=== PATIENT | female | born 1950 | race Caucasian/White ===

== ENCOUNTER 2021-03-23 14:02 | Outpatient (REF) | payer MEDICARE, SELFPAY | END 2021-03-23 14:03 | disposition home or self-care (01) | LOC: HO.LNP 14:02 | PROVIDERS: Visit Provider Hospitalist | DX: R30.0 Dysuria (principal) | CPT/HCPCS: 87086; 87088; 87186 ==

== ENCOUNTER 2022-02-04 11:00 | Outpatient (RCR) | payer MEDICARE, OTHER, SELFPAY ==
--- NOTE | 2021-12-10 12:47 | MHC.PT.EP ---
[facility] [place] [facility] [place] [facility] [place] Office [address] Aly Mckenzie [address] [phone] F: [phone] F: [phone] F: [phone] F: [phone] Physical Therapy Plan of Care Date of Evaluation: Date of Surgery: n/a Diagnosis: R hip pain Assessment: Patient is a 71 year old female presenting to PT with complaints of pain in her R hip. Pt reports onset of pain began about 6 months ago due to insidious onset. She presents today with impairments in ROM, hip strength, posture, TTP to hip musculature . Pt's current occupation is retired, with baseline physical activities including ADLs, sitting, stair negotiation, ambulation, and transfers. Pt expresses fdc goal of reducing stiffness, and is motivated to work towards this in PT. Clinical presentation today is most consistent with signs and sx associated with possible hip bursitis with possible myofascial contribution and pt will benefit from skilled PT to address the following problems and impairments noted upon evaluation: ROM, hip strength, posture, TTP to hip musculature. These problems limit the patient with the following functional activities: ADLs, sitting, stair negotiation, ambulation, and transfers. The prescribed treatment plan of care is medically necessary. Co-morbidities of osteopenia, HTN, fibromyalgia were identified and taken into considerations of plan of care. Pt was educated on HEP, role of PT, prognosis, POC. Frequency and Duration: The patient will be seen 2 x week x 5 weeks Short Term Goals: Pt will demonstrate improved hip MMT by 1/3 grade in 3 weeks for improved lumbopelvic stability. Pt will demonstrate negative trendelenburg in 3 weeks for improved stability with gait. Pt will demonstrate hip flexion ROM without reports of stiffness on R in 3 weeks. Jail Goals: Pt will demonstrate LEFI score improved by 9 points in 5 weeks for improved functional mobility. Pt will demonstrate ability to negotiate stairs step over step without difficulty in 5 weeks. Pt will demonstrate ability to ambulate with normal mechanics in 5 weeks for return to PLOF. Treatment Plan: Modalities to reduce pain, spasms and effusion. Manual therapy to restore motion and function. Therapeutic exercise to improve strength and flexibility. Neuromuscular re-education for posture and balance. Therapeutic activities to return to functional activities of daily living. Electronically signed by: Ade Ennis, PT, DPT, ATC Please sign and return to therapist. Thank you for your referral.
--- NOTE | 2022-02-04 12:59 | MHC.PT.DC ---
[facility] [place] Office [place] Office [place] Office [address] Aly Mckenzie [address] [phone] F: [phone] F: [phone] F: [phone] F: [phone] Physical Therapy Discharge Report Diagnosis: R hip pain Date of Surgery: n/a Date of Evaluation: 12/10/21 Date of Discharge: 02/04/22 Treatments to Date: 15 Cancellations to Date: 1 No Shows to Date: 1 Discharge Status: Achieved Goals Improved Function Independent with HEP Discharge Summary: Pt has made great progress since beginning PT. She is no longer feeling stiffness except at night. She has met all goals and is no longer demonstrating difficulty with navigating stairs or completing her daily activities. She is independent and compliant with her HEP. 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 At this time max benefits of PT have been provided and skilled PT is no longer indicated. She is in agreement with d/c today. Electronically signed by: Ade Ennis, PT, DPT, ATC Please sign and return to therapist. Thank you for your referral.
== END 2022-02-04 12:59 | disposition home or self-care (01) ==
LOC: HO.PTCHIC 11:00
PROVIDERS: Visit Provider Nurse Practitioner Family
DX: M25.551 Pain in right hip (principal)
CPT/HCPCS: 97110; 97140; 97161

== ENCOUNTER 2023-09-25 14:12 | Outpatient (AMB) | payer BC, SELFPAY ==
--- NOTE | 2023-09-25 14:23 | MHC.PC.OV ---
Vital Signs 09/25/23 14:26 Height 5 ft 5 in Weight 197 lb BMI 32.8 BP 120/78 Blood Pressure Location Lt brachial Position Sitting Pulse 80 Pulse Source Pulse Oximeter Pulse Oximetry (%) 98 Oxygen Delivery Method Room Air Intake Visit Reasons: 6 month follow up Intake Note: Patient here for osteopenia follow up. Allergies sulfamethoxazole [From Bactrim] Allergy (Intermediate, Verified 09/25/23 14:27) Rash trimethoprim [From Bactrim] Allergy (Intermediate, Verified 09/25/23 14:27) Rash azithromycin Allergy (Unknown, Verified 09/25/23 14:27) unknown reaction Tobacco use date assessed: 01/27/23 Fall risk assessment: No Falls in past year Last assessed Fall Risk: 09/25/23 Dental Screening Dental Screen Date: 09/25/23 Did you have a dental visit in the last 12 months?: No Did you have a dental problem in the last 6 months where you did not have access to dental care?: No Was dental information given to patient?: No HPI 6 month follow up HPI Details HTN: Blood pressure is stable, managed with lisinopril-hydrochlorothiazide 10-12.5mg. Denies chest pain, shortness of breath, headache, dizziness, and blurred vision. [facility] Medical History Hematuria, microscopic Insomnia H. pylori infection Schatzki's ring Osteopenia HTN (hypertension) Fibromyalgia Renal stones Asthma Surgical History History of partial hysterectomy Status post breast reduction History of laparoscopic cholecystectomy Family History Father CVD (cardiovascular disease) Myocardial infarction Mother Breast cancer Bladder cancer Son No problems noted. Social History Housing: House Alcohol intake: never Patient Tobacco Use Status: Never used Tobacco e-Cigarette/Vaping Use: Never Used Second Hand Smoke Exposure: No Current occupational status: retired Current occupational exposures/hazards: No Cognitive needs: No Hearing needs: No Vision needs: No Questionnaire Thrive Questionnaire Date Thrive assessed: 01/27/23 KATE-7 AMB Questionnaire KATE-7 Date KATE - 7 assessed: 01/27/23 Source: Developed by Drs. Angelito Katz, Cristine Coto, John Mora and colleagues, with an educational liss from [employer]. Review of Systems Const Reports as per HPI Physical exam (Primary Care) Vital Signs: Last Vital Signs Pulse 80 09/25/23 14:26 BP 120/78 09/25/23 14:26 Pulse Ox 98 09/25/23 14:26 Oxygen Delivery Method Room Air 09/25/23 14:26 BMI result Body Mass Index 32.8 Tobacco/Smoking Status: Tobacco use Status Tobacco use date assessed 01/27/23 09/25/23 14:24 Patient Tobacco Use Status Never used Tobacco 09/25/23 14:24 e-Cigarette/Vaping Use Never Used 09/25/23 14:24 Thrive Assessment: Date of Thrive Assessment Date Thrive assessed 01/27/23 09/25/23 14:24 Const General: cooperative Nutritional Appearance: obese Orientation/consciousness: patient oriented x3 Resp Effort & Inspection: normal respiratory effort Auscultation: clear to auscultation bilaterally Cardio Rate: regular rate Rhythm: regular rhythm Heart sounds: S1 normal heart sound present and S2 normal heart sound present Neuro General: patient oriented x3 Extrem Right lower extremity: no edema Left lower extremity: no edema Psych Appearance: grossly normal Mental Status: mental status grossly normal Speech and movement: Normal speech and movement present Affect: normal affect Attitude: cooperative Thought process: Normal thought process present Thought content: Normal thought content present Insight: Good insight present (Psych) Judgement: Good judgement present (Psych) Assessment and Plan Assessment & Plan (1) HTN (hypertension): Code(s): I10 - Essential (primary) hypertension Coding Level of Care Code Est Pt Level 3 (01608) Diagnoses HTN (hypertension) I10
[2023-09-25 14:26] VITALS: BP 120/78; PULSE 80; O2SAT 98; BMI 32.8
== END 2023-09-25 15:36 | disposition home or self-care (01) ==
PROVIDERS: PCP Nurse Practitioner Family; Visit Provider Nurse Practitioner Family
DX: I10 Essential (primary) hypertension (principal)
CPT/HCPCS: 99213

== ENCOUNTER 2024-02-02 10:09 | Outpatient (AMB) | payer BC, SELFPAY ==
--- NOTE | 2024-02-02 10:24 | MHC.PC.OV ---
Vital Signs 02/02/24 10:26 Height 5 ft 5 in Weight 204 lb BMI 33.9 BP 120/76 Blood Pressure Location Lt brachial Position Sitting Pulse 66 Pulse Source Pulse Oximeter Pulse Oximetry (%) 98 Oxygen Delivery Method Room Air Intake Visit Reasons: Annual PE Intake Note: Patient here for physical exam. Mammo: 2022 due end of this year BD: 2022 Allergies sulfamethoxazole [From Bactrim] Allergy (Intermediate, Verified 02/02/24 10:27) Rash trimethoprim [From Bactrim] Allergy (Intermediate, Verified 02/02/24 10:27) Rash azithromycin Allergy (Unknown, Verified 02/02/24 10:27) unknown reaction Medication List - Last Reconciled 02/02/24 by AMINA Francisco ascorbate calcium (vitamin C) 500 mg PO DAILY aspirin 81 mg PO DAILY cephalexin 500 mg PO Q6H 7 days cholecalciferol (vitamin D3) 50 mcg PO DAILY ezetimibe 10 mg PO DAILY lisinopril-hydrochlorothiazide 10-12.5 mg 1 tab PO DAILY multivitamin (Multiple Vitamins tablet) 1 tab PO DAILY omeprazole 20 mg PO DAILY tramadol 50 mg PO BID PRN 10 days Tobacco use date assessed: 02/02/24 Fall risk assessment: No Falls in past year Last assessed Fall Risk: 02/02/24 Dental Screening Dental Screen Date: 02/02/24 Did you have a dental visit in the last 12 months?: Yes Did you have a dental problem in the last 6 months where you did not have access to dental care?: No Was dental information given to patient?: Patient has dentist HPI Annual PE HPI Details Pt is here for a PE. Will order labs. Refuses colonoscopy and cologuard. Mammo is up to date. Bone density is up to date. [facility] Medical History Hematuria, microscopic Insomnia H. pylori infection Schatzki's ring Osteopenia HTN (hypertension) Fibromyalgia Renal stones Asthma Surgical History History of partial hysterectomy Status post breast reduction History of laparoscopic cholecystectomy Family History Father CVD (cardiovascular disease) Myocardial infarction Mother Breast cancer Bladder cancer Son No problems noted. Social History Housing: House Alcohol intake: never Patient Tobacco Use Status: Never used Tobacco e-Cigarette/Vaping Use: Never Used Second Hand Smoke Exposure: No Current occupational status: retired Current occupational exposures/hazards: No Cognitive needs: No Hearing needs: No Vision needs: No Questionnaire PHQ-9 Over the last 2 weeks, how often have you been bothered by any of the following problems? 79798 - PHQ-9 Billing: Patient declined-do not bill Source: Developed by Drs. Angelito Katz, Cristine Coto, John Mora and colleagues, with an educational liss from [employer]. Thrive Questionnaire Date Thrive assessed: 02/02/24 What is your living situation today?: I choose not to answer this question Within the past 12 months, did the food you bought not last and you didn't have the money to get more?: I choose not to answer this question Within the past 12 months, did you worry whether your food would run out before you got money to buy more?: I choose not to answer this question Do you have trouble paying for medicines?: I choose not to answer this question Do you have trouble getting transportation to medical appointments?: I choose not to answer this question Do you have trouble paying your heating and electricity bill?: I choose not to answer this question Do you have trouble taking care of your child, family member or friend?: I choose not to answer this question Do you have trouble with day-to-day activities such as bathing, preparing meals, shopping, managing finances, etc.?: I choose not to answer this question Are you currently unemployed and looking for a job?: I choose not to answer this question Are you interested in more education?: I choose not to answer this question Currently or been in a relationship where the following occur: I choose not to answer this question THRIVE Score: 0 AUDIT C Alcohol Use Questionnaire (AUDIT-C) 1. How often do you have a drink containing alcohol?: Never 3. How often do you have six or more drinks on one occasion?: Never Total Score: 0 Score Reviewed/Action Taken: No KATE-7 AMB Questionnaire KATE-7 Date KATE - 7 assessed: 02/02/24 Source: Developed by Drs. Angelito Katz, Cristine Coto, John Mora and colleagues, with an educational liss from [employer]. KATE-7 Assessment Billing KATE-7 Assessment Tool: pt declined-do not bill Review of Systems Const Denies chills and Denies fever(s) Eyes Denies blurry vision ENT Denies vertigo, Denies dizziness and Denies sore throat Card Denies chest pain at rest, Denies chest pain with activity, Denies diaphoresis, Denies dyspnea and Denies dyspnea on exertion Resp Denies cough, Denies dyspnea, Denies dyspnea on exertion and Denies wheezing GI Denies abdominal pain, Denies melena, Denies hematochezia, Denies constipation, Denies diarrhea and Denies loose stools Denies hematuria Musc Denies numbness and Denies tingling Skin/Breast Denies lesions Neuro Denies vertigo, Denies dizziness, Denies numbness and Denies tingling Psych Denies anxiety, Denies depression, Denies homicidal ideation, Denies suicidal ideation and Denies other (substance abuse) Aller/Immun Denies wheezing Physical exam (Primary Care) Vital Signs: Last Vital Signs Pulse 66 02/02/24 10:26 BP 120/76 02/02/24 10:26 Pulse Ox 98 02/02/24 10:26 Oxygen Delivery Method Room Air 02/02/24 10:26 BMI result Body Mass Index 33.9 Tobacco/Smoking Status: Tobacco use Status Tobacco use date assessed 02/02/24 02/02/24 10:29 Patient Tobacco Use Status Never used Tobacco 02/02/24 10:26 e-Cigarette/Vaping Use Never Used 02/02/24 10:26 Thrive Assessment: Date of Thrive Assessment Date Thrive assessed 02/02/24 02/02/24 10:37 Currently or been in a relationship where the following occur: I choose not to answer this question Const General: cooperative Nutritional Appearance: obese Orientation/consciousness: patient oriented x3 HENMT Head: Yes normal to inspection, Yes normocephalic and Yes atraumatic Ears: TM's normal bilaterally Eyes General: appearance normal, both eyes and all related structures Alignment and Position: alignment normal and position normal Neck Neck: Yes normal visual inspection and Yes no lymphadenopathy Thyroid: Thyroid normal Resp Effort & Inspection: normal respiratory effort Auscultation: clear to auscultation bilaterally Cardio Rate: regular rate Rhythm: regular rhythm Heart sounds: S1 normal heart sound present, S2 normal heart sound present and no murmurs GI Palpation (GI): Soft to palpation and nontender Auscultation: normal bowel sounds Skin Rashes: no rashes Neuro General: patient oriented x3, moves all extremities, no focal motor deficits and deep tendon reflexes 2+ bilaterally Romberg Test: Negative Extrem Right lower extremity: no edema Left lower extremity: no edema Psych Appearance: grossly normal Mental Status: mental status grossly normal Speech and movement: Normal speech and movement present Affect: normal affect Attitude: cooperative Thought process: Normal thought process present Thought content: Normal thought content present Insight: Good insight present (Psych) Judgement: Good judgement present (Psych) Assessment and Plan Assessment & Plan (1) Physical exam: Code(s): Z. - Encounter for general adult medical examination without abnormal findings Plan: Labs ordered Orders: Orders UA CC w/rflx Micro + Cult Today Z. - Encounter for general adult medical examination without abnormal findings Vitamin D 25-OH Total Today Z00. - Encounter for general adult medical examination without abnormal findings Complete Blood Count Auto Diff Today Z00. - Encounter for general adult medical examination without abnormal findings Comprehensive [place]. Panel Fast Today Z00. - Encounter for general adult medical examination without abnormal findings TSH reflex Free T4 Today Z00.00 - Encounter for general adult medical examination without abnormal findings Lipid Panel Today Z00.00 - Encounter for general adult medical examination without abnormal findings Coding Level of Care Code Est Pt Prev Care >65y(44391) Diagnoses Physical exam Z.
[2024-02-02 10:26] VITALS: BP 120/76; PULSE 66; O2SAT 98; BMI 33.9
== END 2024-02-02 11:13 | disposition home or self-care (01) ==
PROVIDERS: Visit Provider Nurse Practitioner Family
DX: Z00.00 Encounter for general adult medical examination without abnormal findings (principal)
CPT/HCPCS: 99397

== ENCOUNTER 2024-02-14 09:05 | Outpatient (AMB) | payer BC, SELFPAY ==
[2024-02-14 09:07] VITALS: BP 110/80; PULSE 68; TEMP 36.6; O2SAT 96; BMI 34.1
--- NOTE | 2024-02-14 09:07 | AM.OFFWIN_ITS ---
Intake Vital Signs 02/14/24 09:07 Height 5 ft 5 in Weight 205 lb BMI 34.1 BP 110/80 Blood Pressure Location Lt brachial Position Sitting Pulse 68 Pulse Source Pulse Oximeter Temp 97.8 F Temp Source Oral Pulse Oximetry (%) 96 Oxygen Delivery Method Room Air Intake Visit Reasons: EST/cough and sinus pressure (lobby masked) Intake Note: Pt is here today c/o cough and sinus pressure x3days Patient Tobacco Use Status: Never used Tobacco Allergies sulfamethoxazole [From Bactrim] Allergy (Intermediate, Verified 02/14/24 09:12) Rash trimethoprim [From Bactrim] Allergy (Intermediate, Verified 02/14/24 09:12) Rash azithromycin Allergy (Unknown, Verified 02/14/24 09:12) unknown reaction Medication List - Last Reconciled 02/14/24 by JIMENA Gregg- ascorbate calcium (vitamin C) 500 mg PO DAILY aspirin 81 mg PO DAILY cholecalciferol (vitamin D3) 50 mcg PO DAILY ezetimibe 10 mg PO DAILY lisinopril-hydrochlorothiazide 10-12.5 mg 1 tab PO DAILY multivitamin (Multiple Vitamins tablet) 1 tab PO DAILY omeprazole 20 mg PO DAILY HPI HPI Comments History of Present Illness Details Here today with complaints of a cough and postnasal drip that started on Friday. 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 She does have a history of asthma. Her cough is worse at night. She does have seasonal allergies in his using Claritin and Flonase. However this is not helping her cough. Other than the cough in the postnasal drip she denies c onstitutional symptoms. [facility] Medical History Hematuria, microscopic Insomnia H. pylori infection Schatzki's ring Osteopenia HTN (hypertension) Fibromyalgia Renal stones Asthma Surgical History History of partial hysterectomy Status post breast reduction History of laparoscopic cholecystectomy Family History Father CVD (cardiovascular disease) Myocardial infarction Mother Breast cancer Bladder cancer Son No problems noted. Social History Housing: House Alcohol intake: never Patient Tobacco Use Status: Never used Tobacco e-Cigarette/Vaping Use: Never Used Second Hand Smoke Exposure: No Current occupational status: retired Current occupational exposures/hazards: No Cognitive needs: No Hearing needs: No Vision needs: No Review of Systems Const All systems reviewed & are unremarkable except as noted in HPI and below Physical Exam Vital Signs: Last Vital Signs Temp 97.8 F 02/14/24 09:07 Pulse 68 02/14/24 09:07 BP 110/80 02/14/24 09:07 Pulse Ox 96 02/14/24 09:07 Oxygen Delivery Method Room Air 02/14/24 09:07 BMI result Body Mass Index 34.1 Const Other: Awake alert NAD Sclera and conjunctiva clear bilat TM intact and clear bilat, mild erythema Nares clear, turbinates pale, no sinus tenderness with palpation MMM, pharynx mild postnasal drip RRR LS CTAB Assessment & Plan Assessment & Plan (1) Allergic cough: Code(s): R05.8 - Other specified cough Plan: . Plan States that she responds well to the cough syrup with codeine on her primary care usually gives her along with the Jillian. These 2 prescriptions have been called in. I have encouraged her to continue to use her Claritin and Flonase. Educated her on reasons to return to the clinic. Medications: New albuterol sulfate 90 mcg/actuation 2 puffs inhalation Q4-6H 30 days PRN 8.5 grams 0RF shortness of breath or wheezing codeine-guaifenesin 10-100 mg/5 mL 10 mL PO Q6H 2 days PRN 80 mL 0RF cough Coding Level of Care Code Est Pt Level 3 (31359) Diagnoses Allergic cough R05.8
== END 2024-02-14 09:52 | disposition home or self-care (01) ==
PROVIDERS: PCP Nurse Practitioner Family; Visit Provider Nurse Practitioner Family
DX: R05.8 Other specified cough (principal)
CPT/HCPCS: 99213

== ENCOUNTER 2024-03-10 11:19 | Outpatient (AMB) | payer BC, SELFPAY ==
--- NOTE | 2024-03-10 11:23 | A.OFFPC_ITS ---
Vital Signs 03/10/24 11:27 Height 5 ft 5 in Weight 198 lb 6 oz BMI 33.0 BP 110/76 Blood Pressure Location Lt brachial Position Sitting Pulse 72 Pulse Source Pulse Oximeter Pulse Oximetry (%) 98 Oxygen Delivery Method Room Air Intake Visit Reasons: Follow up er dx pneumonia Intake Note: Patient here to f/u pneumonia Allergies sulfamethoxazole [From Bactrim] Allergy (Intermediate, Verified 03/10/24 11:30) Rash trimethoprim [From Bactrim] Allergy (Intermediate, Verified 03/10/24 11:30) Rash azithromycin Allergy (Unknown, Verified 03/10/24 11:30) unknown reaction Tobacco use date assessed: 02/02/24 Fall risk assessment: No Falls in past year Last assessed Fall Risk: 03/10/24 Dental Screening Dental Screen Date: 02/02/24 HPI Follow up er dx pneumonia HPI Details Pt was seen in the ER on 02/18 c/o cough. She had a chest XR which showed right middle lobe pneumonia. Pt was given doxycycline. Will repeat chest XR. Pt does report fatigue. Denies fever, chills, chest pain, and shortness of breath. Pt reports increased allergy symptoms. Recommended pt stop claritin and start cetirizine. [facility] Medical History Hematuria, microscopic Insomnia H. pylori infection Schatzki's ring Osteopenia HTN (hypertension) Fibromyalgia Renal stones Asthma Surgical History History of partial hysterectomy Status post breast reduction History of laparoscopic cholecystectomy Family History Father CVD (cardiovascular disease) Myocardial infarction Mother Breast cancer Bladder cancer Son No problems noted. Social History Housing: House Alcohol intake: never Patient Tobacco Use Status: Never used Tobacco e-Cigarette/Vaping Use: Never Used Second Hand Smoke Exposure: No Current occupational status: retired Current occupational exposures/hazards: No Cognitive needs: No Hearing needs: No Vision needs: No Questionnaire Thrive Questionnaire Date Thrive assessed: 02/02/24 KATE-7 AMB Questionnaire KATE-7 Date KATE - 7 assessed: 02/02/24 Source: Developed by Drs. Angelito Katz, Cristine Coto, John Mora and colleagues, with an educational liss from [employer]. Review of Systems Const Reports as per HPI Physical exam (Primary Care) Vital Signs: Last Vital Signs Pulse 72 03/10/24 11:27 BP 110/76 03/10/24 11:27 Pulse Ox 98 03/10/24 11:27 Oxygen Delivery Method Room Air 03/10/24 11:27 BMI result Body Mass Index 33.0 Tobacco/Smoking Status: Tobacco use Status Tobacco use date assessed 02/02/24 03/10/24 11:25 Patient Tobacco Use Status Never used Tobacco 03/10/24 11:25 e-Cigarette/Vaping Use Never Used 03/10/24 11:25 Thrive Assessment: Date of Thrive Assessment Date Thrive assessed 02/02/24 03/10/24 11:25 Const General: cooperative Orientation/consciousness: patient oriented x3 Resp Effort & Inspection: normal respiratory effort Auscultation: clear to auscultation bilaterally Cardio Rate: regular rate Rhythm: regular rhythm Heart sounds: S1 normal heart sound present and S2 normal heart sound present Neuro General: patient oriented x3 Psych Appearance: grossly normal Mental Status: mental status grossly normal Speech and movement: Normal speech and movement present Affect: normal affect Attitude: cooperative Thought process: Normal thought process present Thought content: Normal thought content present Insight: Good insight present (Psych) Judgement: Good judgement present (Psych) Assessment and Plan Assessment & Plan (1) Pneumonia: Code(s): J18.9 - Pneumonia, unspecified organism Plan: encouraged deep breathing exercises, fluids, switching claritin to cetirizine, follow up XR early next week. Pt knows to go to the ER with any worsening symptoms. Orders: Orders XR chest 2V Today J18.9 - Pneumonia, unspecified organism Coding Level of Care Code Est Pt Level 3 (51436) Diagnoses Pneumonia J18.9
[2024-03-10 11:27] VITALS: BP 110/76; PULSE 72; O2SAT 98; BMI 33.0
== END 2024-03-10 11:59 | disposition home or self-care (01) ==
PROVIDERS: PCP Nurse Practitioner Family; Visit Provider Nurse Practitioner Family
DX: J18.9 Pneumonia, unspecified organism (principal)
CPT/HCPCS: 99213

== ENCOUNTER 2024-04-06 08:04 | Outpatient (AMB) | payer BC, SELFPAY ==
[2024-04-06 08:05] VITALS: BP 112/72; PULSE 72; TEMP 36.9; O2SAT 98; BMI 32.9
--- NOTE | 2024-04-06 08:05 | AM.OFFWIN_ITS ---
Intake Vital Signs 04/06/24 08:05 Height 5 ft 5 in Weight 198 lb BMI 32.9 BP 112/72 Blood Pressure Location Lt brachial Position Sitting Pulse 72 Pulse Source Pulse Oximeter Temp 98.5 F Temp Source Oral Pulse Oximetry (%) 98 Oxygen Delivery Method Room Air Intake Visit Reasons: EP Cough, headache Intake Note: pt is here for cough and headache Patient Tobacco Use Status: Never used Tobacco Allergies sulfamethoxazole [From Bactrim] Allergy (Intermediate, Verified 04/06/24 08:05) Rash trimethoprim [From Bactrim] Allergy (Intermediate, Verified 04/06/24 08:05) Rash azithromycin Allergy (Unknown, Verified 04/06/24 08:05) unknown reaction Do you need a note to return to daycare/school/sports/work: No HPI HPI Comments History of Present Illness Details Patient is a 73-year-old female complaining of 3 days of postnasal drip, fatigue and general unwell feeling. She states her tested positive for COVID 4 days ago, she states he is taking Paxlovid and is feeling better. Patient denies any shortness of breath, chest congestion, fevers, head congestion, sinus pain or ear pain. [facility] Medical History Hematuria, microscopic Insomnia H. pylori infection Schatzki's ring Osteopenia HTN (hypertension) Fibromyalgia Renal stones Asthma Surgical History History of partial hysterectomy Status post breast reduction History of laparoscopic cholecystectomy Family History Father CVD (cardiovascular disease) Myocardial infarction Mother Breast cancer Bladder cancer Son No problems noted. Social History Housing: House Alcohol intake: never Patient Tobacco Use Status: Never used Tobacco e-Cigarette/Vaping Use: Never Used Second Hand Smoke Exposure: No Current occupational status: retired Current occupational exposures/hazards: No Cognitive needs: No Hearing needs: No Vision needs: No Review of Systems Const All systems reviewed & are unremarkable except as noted in HPI and below Physical Exam Vital Signs: Last Vital Signs Temp 98.5 F 04/06/24 08:05 Pulse 72 04/06/24 08:05 BP 112/72 04/06/24 08:05 Pulse Ox 98 04/06/24 08:05 Oxygen Delivery Method Room Air 04/06/24 08:05 BMI result Body Mass Index 32.9 Const General: cooperative, healthy appearing, comfortable and no acute distress Orientation/consciousness: patient oriented x3 Limitations: no limitations HEENT Head: Yes normal to inspection Ears: external ears normal General nose exam: Normal external nose present, Normal nares present and No nasal discharge present Face and sinus: Yes normal facial exam and Yes sinuses nontender Mouth: Normal oral and palatal mucosa present and moist mucous membranes Throat: Yes posterior oropharynx abnormal (Erythema) Eyes General: appearance normal, both eyes and all related structures Neck Neck: Yes normal visual inspection Resp Effort & Inspection: normal respiratory effort, able to speak in complete sentences, no respiratory distress, not tachypneic, no tripod positioning and no use of accessory muscles Auscultation: clear to auscultation bilaterally Cardio Rate: regular rate Rhythm: regular rhythm Heart sounds: normal S1 and S2 Skin General skin exam: no rashes or lesions noted Neuro General: patient oriented x3 Extrem General: Yes normal to inspection and Yes no clubbing, cyanosis or edema Assessment & Plan Assessment & Plan (1) URI (upper respiratory infection): Code(s): J06.9 - Acute upper respiratory infection, unspecified Qualifiers: URI type: unspecified viral URI Qualified Code(s): J06.9 - Acute upper respiratory infection, unspecified Plan: Tested for COVID, however patient can not be treated with Paxlovid because she can not swallow the large pills and they can not be crushed. Tested so patient would know whether to self isolate or not Plan see above Orders: Orders SARS-CoV2/FLU/RSV Today J06.9 - Acute upper respiratory infection, unspecified Coding Level of Care Code Est Pt Level 3 (87829) Diagnoses Viral upper respiratory tract infection J06.9 URI type: unspecified viral URI
== END 2024-04-06 10:49 | disposition home or self-care (01) ==
PROVIDERS: PCP Nurse Practitioner Family; Visit Provider Physician Assistant
DX: J06.9 Acute upper respiratory infection, unspecified (principal)
CPT/HCPCS: 99213

== ENCOUNTER 2024-04-06 08:29 | Outpatient (REF) | payer BC, SELFPAY ==
[2024-04-06 13:39] LABS: Influenza A PCR NEGATIVE (Negative); Influenza B PCR NEGATIVE (Negative); Resp Syncy Virus RNA Qual PCR NEGATIVE (Negative); SARS COV2 PCR INHOUSE POSITIVE (Negative)
== END 2024-04-06 08:30 | disposition home or self-care (01) ==
LOC: HO.LAB 08:29
PROVIDERS: Visit Provider Physician Assistant
DX: J06.9 Acute upper respiratory infection, unspecified (principal)
CPT/HCPCS: 0241U

== ENCOUNTER 2024-07-12 09:40 | Outpatient (AMB) | payer BC, SELFPAY ==
--- NOTE | 2024-07-12 09:43 | A.OFFPC_ITS ---
Vital Signs 07/12/24 09:44 Height 5 ft 5 in Weight 197 lb 8 oz BMI 32.9 BP 118/72 Blood Pressure Location Lt brachial Position Sitting Pulse 75 Pulse Source Pulse Oximeter Pulse Oximetry (%) 97 Intake Visit Reasons: 6M F/U Allergies sulfamethoxazole [From Bactrim] Allergy (Intermediate, Verified 07/12/24 09:57) Rash trimethoprim [From Bactrim] Allergy (Intermediate, Verified 07/12/24 09:57) Rash azithromycin Allergy (Unknown, Verified 07/12/24 09:57) unknown reaction Medication List - Last Reconciled 07/12/24 by AMINA Francisco albuterol sulfate 90 mcg/actuation 2 puffs inhalation Q4-6H PRN 30 days ascorbate calcium (vitamin C) 500 mg PO DAILY aspirin 81 mg PO DAILY cholecalciferol (vitamin D3) 50 mcg PO DAILY ezetimibe 10 mg PO DAILY lisinopril-hydrochlorothiazide 10-12.5 mg 1 tab PO DAILY multivitamin (Multiple Vitamins tablet) 1 tab PO DAILY omeprazole 20 mg PO DAILY Tobacco use date assessed: 02/02/24 Dental Screening Dental Screen Date: 02/02/24 HPI 5M F/U HPI Details Dyslipidemia: Pt's lipids were elevated. She is taking ezetimibe 10mg. Will repeat labs. Pt's fasting blood sugar was also elevated. Will repeat. Pt is working on her diet. Denies chest pain, shortness of breath, and dizziness. [facility] Medical History Hematuria, microscopic Insomnia H. pylori infection Schatzki's ring Osteopenia HTN (hypertension) Fibromyalgia Renal stones Asthma Surgical History History of partial hysterectomy Status post breast reduction History of laparoscopic cholecystectomy Family History Father CVD (cardiovascular disease) Myocardial infarction Mother Breast cancer Bladder cancer Son No problems noted. Social History Housing: House Alcohol intake: never Patient Tobacco Use Status: Never used Tobacco e-Cigarette/Vaping Use: Never Used Second Hand Smoke Exposure: No Current occupational status: retired Current occupational exposures/hazards: No Cognitive needs: No Hearing needs: No Vision needs: No Questionnaire PHQ-9 Over the last 2 weeks, how often have you been bothered by any of the following problems? 1. Little interest or pleasure in doing things: not at all 2. Feeling down, depressed, or hopeless: not at all 3. Trouble falling or staying asleep, or sleeping too much: not at all 4. Feeling tired or having little energy: not at all 5. Poor appetite or overeating: not at all 6. Feeling bad about yourself - or that you are a failure or have let yourself or your family down: not at all 7. Trouble concentrating on things, such as reading the newspaper or watching television: not at all 8. Moving or speaking so slowly that other people could have noticed. Or the opposite - being so fidgety or restless that you have been moving around a lot more than usual: not at all 9. Thoughts that you would be better off or of hurting yourself in some way: not at all Total score: 0 Depression Screening Interpretation: Negative Depression Screening Done: Yes 00628 - PHQ-9 Billing: Yes Source: Developed by Drs. Angelito Katz, Cristine Coto, John Mora and colleagues, with an educational liss from [employer]. Thrive Questionnaire Date Thrive assessed: 07/05/24 I am a: Patient What is your living situation today?: I have a steady place to live Within the past 12 months, did the food you bought not last and you didn't have the money to get more?: Never true Within the past 12 months, did you worry whether your food would run out before you got money to buy more?: Never true Do you have trouble paying for medicines?: No Do you have trouble getting transportation to medical appointments?: No Do you have trouble paying your heating and electricity bill?: No Do you have trouble taking care of your child, family member or friend?: No Do you have trouble with day-to-day activities such as bathing, preparing meals, shopping, managing finances, etc.?: No Are you interested in more education?: No Please select the resources that you would like help with: None Currently or been in a relationship where the following occur: No concerns reported THRIVE Score: 0 AUDIT C Alcohol Use Questionnaire (AUDIT-C) 1. How often do you have a drink containing alcohol?: Never Total Score: 0 KATE-7 AMB Questionnaire KATE-7 Date KATE - 7 assessed: 02/02/24 Feeling nervous, anxious, or on edge: 0 = Not at all Not being able to stop or control worryin = Not at all Worrying too much about different things: 0 = Not at all Trouble relaxin = Not at all Being so restless that it is hard to sit still: 0 = Not at all Becoming easily annoyed or irritable: 0 = Not at all Feeling afraid as if something awful might happen: 0 = Not at all Total KATE-7 score (0-4 normal; 5-9 mild; 10-14 moderate; 15-21 severe): 0 Source: Developed by Drs. Angelito Katz, Cristine Coto, John Mora and colleagues, with an educational liss from [employer]. KATE-7 Assessment Billing KATE-7 Assessment Tool: KATE-7 Assessment 09220 Review of Systems Const Reports as per HPI Physical exam (Primary Care) Vital Signs: Last Vital Signs Pulse 75 07/12/24 09:44 BP 118/72 07/12/24 09:44 Pulse Ox 97 07/12/24 09:44 BMI result Body Mass Index 32.9 Tobacco/Smoking Status: Tobacco use Status Tobacco use date assessed 02/02/24 07/12/24 09:44 Patient Tobacco Use Status Never used Tobacco 07/12/24 09:44 e-Cigarette/Vaping Use Never Used 07/12/24 09:44 PHQ-9: PHQ-9 Score PHQ-9: Total score 0 07/12/24 09:44 Depression Screening Interpretation: Negative Thrive Assessment: Date of Thrive Assessment Date Thrive assessed 07/05/24 07/12/24 09:44 Currently or been in a relationship where the following occur: No concerns reported Const General: cooperative Nutritional Appearance: obese Orientation/consciousness: patient oriented x3 Resp Effort & Inspection: normal respiratory effort Auscultation: clear to auscultation bilaterally Cardio Rate: regular rate Rhythm: regular rhythm Heart sounds: S1 normal heart sound present and S2 normal heart sound present Neuro General: patient oriented x3 Extrem Right lower extremity: edema (trace) Left lower extremity: edema (trace) Psych Appearance: grossly normal Mental Status: mental status grossly normal Speech and movement: Normal speech and movement present Affect: normal affect Attitude: cooperative Thought process: Normal thought process present Thought content: Normal thought content present Insight: Good insight present (Psych) Judgement: Good judgement present (Psych) Coding Level of Care Code Est Pt Level 3 (08477) Diagnoses Dyslipidemia E78.5 Elevated fasting blood sugar R73.01 Additional Codes KATE-7 Assessment Billing - KATE-7 Assessment Tool: KATE-7 Assessment 92341 ([id number]) Assessment & Plan Assessment & Plan (1) Dyslipidemia: Code(s): E78.5 - Hyperlipidemia, unspecified Category: Medical Plan: on zetia, pt is working on her diet and will repeat in approx 2 months (2) Elevated fasting blood sugar: Code(s): R73.01 - Impaired fasting glucose Category: Medical Plan: repeating in 2 months Orders: Orders Comprehensive [place]. Panel Fast 2 Months E78.5 - Hyperlipidemia, unspecified, R73.01 - Impaired fasting glucose MM screening mammo BI Today Z12.31 - Encounter for screening mammogram for malignant neoplasm of breast Lipid Panel 2 Months E78.5 - Hyperlipidemia, unspecified, R73.01 - Impaired fasting glucose
[2024-07-12 09:44] VITALS: BP 118/72; PULSE 75; O2SAT 97; BMI 32.9
== END 2024-07-12 16:13 | disposition home or self-care (01) ==
PROVIDERS: PCP Nurse Practitioner Family; Visit Provider Nurse Practitioner Family
DX: E78.5 Hyperlipidemia, unspecified (principal); R73.01 Impaired fasting glucose

== ENCOUNTER → 2024-07-12 09:40 | Outpatient (BNVA) | payer BC, SELFPAY | PROVIDERS: PCP Nurse Practitioner Family; Visit Provider Nurse Practitioner Family | DX: E78.5 Hyperlipidemia, unspecified (principal); R73.01 Impaired fasting glucose | CPT/HCPCS: 96127 ==

== ENCOUNTER 2025-02-03 10:11 | Outpatient (REF) | payer BC, SELFPAY ==
--- NOTE | ~2025-02-03 | XR_ITS ---
EXAMINATION: XR KNEE 1-2 VIEWS LEFT HISTORY: M25.562 - Pain in left knee COMPARISON: Comparison is made with the prior examination dated 05/22/2018. FINDINGS: AP and lateral views of the left knee are submitted. Osseous mineralization is normal. There is no fracture or dislocation. There is moderate osteoarthritis of the medial compartment and mild osteoarthritis of the lateral and patellofemoral compartments, with joint space narrowing and osteophyte formation. There is a small suprapatellar joint effusion. XR/XR knee LT 2V IMPRESSION: Small joint effusion. Osteoarthritis of the left knee as described. Electronically signed by: Angelito Barraza MD 02/04/2025 08:37 AM EDT
== END 2025-02-03 10:12 | disposition home or self-care (01) ==
LOC: HO.HMGCX 10:11
PROVIDERS: PCP Nurse Practitioner Family; Visit Provider Nurse Practitioner Family
DX: Z00.00 Encounter for general adult medical examination without abnormal findings (principal); M25.562 Pain in left knee; M85.80 Other specified disorders of bone density and structure, unspecified site
CPT/HCPCS: 73560; 96127

== ENCOUNTER → 2025-02-03 10:16 | Outpatient (BNV) | payer BC, SELFPAY | PROVIDERS: PCP Nurse Practitioner Family; Visit Provider Radiology Diagnostic Radiology | DX: M25.462 Effusion, left knee (principal) | CPT/HCPCS: 73560 ==

== ENCOUNTER 2025-02-03 13:38 | Outpatient (AMB) | payer BC, SELFPAY ==
[2025-02-03 13:42] VITALS: BP 122/72; PULSE 83; O2SAT 95; BMI 32.8
--- NOTE | 2025-02-03 13:42 | MHC.PC.OV ---
Vital Signs 02/03/25 13:42 Height 5 ft 5 in Weight 197 lb BMI 32.8 BP 122/72 Blood Pressure Location Lt brachial Position Sitting Pulse 83 Pulse Source Pulse Oximeter Pulse Oximetry (%) 95 Oxygen Delivery Method Room Air Intake Visit Reasons: Annual [employer] Consultant Required: No Accompanied by: Self / Same As Patient Allergies sulfamethoxazole [From Bactrim] Allergy (Intermediate, Verified 02/03/25 14:12) Rash trimethoprim [From Bactrim] Allergy (Intermediate, Verified 02/03/25 14:12) Rash azithromycin Allergy (Unknown, Verified 02/03/25 14:12) unknown reaction Medication List - Last Reconciled 02/03/25 by AYAD FranciscoP- albuterol sulfate 90 mcg/actuation 2 puffs inhalation Q4-6H PRN 30 days ascorbate calcium (vitamin C) 500 mg PO DAILY aspirin 81 mg PO DAILY cholecalciferol (vitamin D3) 50 mcg PO DAILY ezetimibe 10 mg PO DAILY lisinopril-hydrochlorothiazide 10-12.5 mg 1 tab PO DAILY multivitamin (Multiple Vitamins tablet) 1 tab PO DAILY omeprazole 20 mg PO DAILY Tobacco use date assessed: 02/03/25 Fall risk assessment: No Falls in past year Last assessed Fall Risk: 02/03/25 Dental Screening Dental Screen Date: 02/03/25 Did you have a dental visit in the last 12 months?: Yes Did you have a dental problem in the last 6 months where you did not have access to dental care?: No Was dental information given to patient?: Patient has dentist HPI Annual PE HPI Details History of Present Illness The patient is a 74-year-old female presenting for health maintenance and left knee pain assessment. She missed her mammogram last fall but plans to have it done soon. Bone density testing is also planned for fall. Her knee pain is due to osteoarthritis, with intermittent swelling and tenderness (anterior-medial) related to movement. A Cheema's cyst is present but not tender, and an X-ray has been ordered. Health Maintenance - Mammogram rescheduled per patient's request. - Bone density scan planned for fall. - Routine evaluation of obesity status and management. -refused cologuard/colonoscopy Social History Review of Systems - Musculoskeletal: Reports left knee pain, minimal swelling, tenderness on movement. - General: Denies other systemic complaints. -denies any cp, sob, fevers, chills, urinary issues, blood in stool, constipation/diarrhea, si or hi Physical Exam General: Cooperative, healthy appearing, comfortable, no acute distress and well developed, obese Orientation: Patient oriented x3 Limitations: No limitations Head: Normal to inspection Ears: Hearing grossly normal bilaterally Nose: Normal external nose present Face and sinus: Normal facial exam Eyes: Appearance normal, both eyes and all related structures Neck: Normal visual inspection and Yes full ROM Respiratory: Normal respiratory effort and able to speak in complete sentences. Clear to auscultation bilaterally Cardiovascular: Regular rate and rhythm. Normal S1 and S2 GI: Normal to inspection. Soft to palpation and nontender Skin: No rashes or lesions noted Neuro: Patient oriented x3 Extremities: Minimal swelling in the anterior-medial aspect of the left knee patellar region, with some tenderness with extension and flexion. Cheema cyst present in the posterior aspect of the left knee. Normal to inspection otherwise. Results - Labs and X-ray: Order has been placed, results pending. Plan An X-ray was ordered to assess the left knee for degenerative changes associated with osteoarthritis, with follow-up based on results. The Cheema's cyst will be monitored. Obesity management continues with diet and exercise. The mammogram is scheduled per the patient's request, and a bone density test is planned. Further visits will adjust these plans as results become available. Discussion Notes I discussed with the patient the importance of conducting regular health maintenance screenings, including mammograms and bone density tests, and these have been scheduled accordingly. We reviewed her knee pain and associated osteoarthritis, emphasizing the role of weight management in alleviating joint stress. I explained the rationale for obtaining an X-ray to evaluate any changes due to her arthritis. The patient understands the need for ongoing monitoring of the Cheema's cyst for any changes in tenderness or size. We agreed on coordinating follow-ups based on the pending X-ray results and modifying the management plan as necessary. Patient Instructions - Attend the scheduled mammogram appointment at the base date. - Return for the bone density scan in the fall. - Follow the prescribed diet and exercise plan to manage weight. - Report any increase in knee pain or swelling before the next visit. - Monitor for changes in the Cheema's cyst, such as increased size or tenderness. - Follow up once X-ray results are provided for further management. [facility] Medical History Hematuria, microscopic Insomnia H. pylori infection Schatzki's ring Osteopenia HTN (hypertension) Fibromyalgia Renal stones Asthma Surgical History History of partial hysterectomy Status post breast reduction History of laparoscopic cholecystectomy Family History (Reviewed 02/03/25 @ 14:47 by Curtis Sherman [facility] Father CVD (cardiovascular disease) Myocardial infarction Mother Breast cancer Bladder cancer Son No problems noted. Social History Housing: House Alcohol intake: never Patient Tobacco Use Status: Never used Tobacco e-Cigarette/Vaping Use: Never Used Second Hand Smoke Exposure: No Current occupational status: retired Current occupational exposures/hazards: No Cognitive needs: No Hearing needs: No Vision needs: No Questionnaire PHQ-9 Over the last 2 weeks, how often have you been bothered by any of the following problems? 1. Little interest or pleasure in doing things: not at all 2. Feeling down, depressed, or hopeless: not at all 3. Trouble falling or staying asleep, or sleeping too much: not at all 4. Feeling tired or having little energy: not at all 5. Poor appetite or overeating: not at all 6. Feeling bad about yourself - or that you are a failure or have let yourself or your family down: not at all 7. Trouble concentrating on things, such as reading the newspaper or watching television: not at all 8. Moving or speaking so slowly that other people could have noticed. Or the opposite - being so fidgety or restless that you have been moving around a lot more than usual: not at all 9. Thoughts that you would be better off or of hurting yourself in some way: not at all Total score: 0 Depression Screening Interpretation: Negative Depression Screening Done: Yes 78048 - PHQ-9 Billing: Yes Source: Developed by Drs. Angelito Katz, Cristine Coto, John Mora and colleagues, with an educational liss from [employer]. Thrive Questionnaire Date Thrive assessed: 02/03/25 I am a: Patient What is your living situation today?: I have a steady place to live Within the past 12 months, did the food you bought not last and you didn't have the money to get more?: Never true Within the past 12 months, did you worry whether your food would run out before you got money to buy more?: Never true Do you have trouble paying for medicines?: No Do you have trouble getting transportation to medical appointments?: No Do you have trouble paying your heating and electricity bill?: No Do you have trouble taking care of your child, family member or friend?: No Do you have trouble with day-to-day activities such as bathing, preparing meals, shopping, managing finances, etc.?: No Are you currently unemployed and looking for a job?: No Are you interested in more education?: No Please select the resources that you would like help with: None Currently or been in a relationship where the following occur: No concerns reported THRIVE Score: 0 AUDIT C Alcohol Use Questionnaire (AUDIT-C) 1. How often do you have a drink containing alcohol?: Never 3. How often do you have six or more drinks on one occasion?: Never Total Score: 0 Score Reviewed/Action Taken: Yes KATE-7 AMB Questionnaire KATE-7 Date KATE - 7 assessed: 02/03/25 Feeling nervous, anxious, or on edge: 0 = Not at all Not being able to stop or control worryin = Not at all Worrying too much about different things: 0 = Not at all Trouble relaxin = Not at all Being so restless that it is hard to sit still: 0 = Not at all Becoming easily annoyed or irritable: 0 = Not at all Feeling afraid as if something awful might happen: 0 = Not at all Total KATE-7 score (0-4 normal; 5-9 mild; 10-14 moderate; 15-21 severe): 0 Source: Developed by Drs. Angelito Katz, Cristine Coto, John Mora and colleagues, with an educational liss from [employer]. KATE-7 Assessment Billing KATE-7 Assessment Tool: KATE-7 Assessment 44017 Physical exam (Primary Care) Vital Signs: Last Vital Signs Pulse 83 02/03/25 13:42 BP 122/72 02/03/25 13:42 Pulse Ox 95 02/03/25 13:42 Oxygen Delivery Method Room Air 02/03/25 13:42 BMI result Body Mass Index 32.8 Tobacco/Smoking Status: Tobacco use Status Tobacco use date assessed 02/03/25 02/03/25 13:43 Patient Tobacco Use Status Never used Tobacco 02/03/25 13:43 e-Cigarette/Vaping Use Never Used 02/03/25 13:43 PHQ-9: PHQ-9 Score PHQ-9: Total score 0 02/03/25 14:03 Depression Screening Interpretation: Negative Thrive Assessment: Date of Thrive Assessment Date Thrive assessed 02/03/25 02/03/25 13:43 Currently or been in a relationship where the following occur: No concerns reported Coding Level of Care Code Est Pt Prev Care >65y(77109) Diagnoses Physical exam Z00. Osteopenia M85.80 Additional Codes KATE-7 Assessment Billing - KATE-7 Assessment Tool: KATE-7 Assessment 48176 ([id number]) PHQ-9 - 71706 - PHQ-9 Billing: Yes ([id number]) Assessment & Plan Assessment & Plan (1) Physical exam: Code(s): Z00.00 - Encounter for general adult medical examination without abnormal findings Category: Medical (2) Osteopenia: Code(s): M85.80 - Other specified disorders of bone density and structure, unspecified site Category: Medical Plan . Orders: Orders Complete Blood Count Auto Diff Today Z00.00 - Encounter for general adult medical examination without abnormal findings Vitamin D 25-OH Total Today M85.80 - Other specified disorders of bone density and structure, unspecified site MM screening mammo BI Today Z12.31 - Encounter for screening mammogram for malignant neoplasm of breast Comprehensive [place]. Panel Fast Today Z00.00 - Encounter for general adult medical examination without abnormal findings TSH reflex Free T4 Today Z00.00 - Encounter for general adult medical examination without abnormal findings UA CC w/rflx Micro + Cult Today Z00.00 - Encounter for general adult medical examination without abnormal findings Lipid Panel Today Z00.00 - Encounter for general adult medical examination without abnormal findings
== END 2025-02-03 14:50 | disposition home or self-care (01) ==
LOC: HO.HMCC 13:39
PROVIDERS: PCP Nurse Practitioner Family; Visit Provider Nurse Practitioner Family
DX: Z00.00 Encounter for general adult medical examination without abnormal findings (principal); M85.80 Other specified disorders of bone density and structure, unspecified site

== ENCOUNTER 2025-08-11 13:58 | Outpatient (AMB) | payer BC, SELFPAY ==
[2025-08-11 14:12] VITALS: BP 120/64; PULSE 70; TEMP 36.6; O2SAT 97
--- NOTE | 2025-08-11 14:12 | MHC.PC.OV ---
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5 mg 1 tab PO DAILY meloxicam 15 mg PO DAILY PRN 30 days multivitamin (Multiple Vitamins tablet) 1 tab PO DAILY omeprazole 20 mg PO DAILY Tobacco use date assessed: 08/11/25 Fall risk assessment: No Falls in past year Last assessed Fall Risk: 08/11/25 Dental Screening Dental Screen Date: 08/11/25 Did you have a dental visit in the last 12 months?: No Did you have a dental problem in the last 6 months where you did not have access to dental care?: No Was dental information given to patient?: Patient declined (Dentures) HPI 6m follow up HPI Details Chief Complaint The patient presents for a follow-up visit for dyslipidemia. History of Present Illness The patient is a 75-year-old female presenting for a follow-up for dyslipidemia. She has a history of left knee arthritis and is currently being managed by an orthopedics specialist. The patient is reportedly doing well otherwise. Social History Health Maintenance - Patient will undergo fasting labs in the near future for dyslipidemia monitoring. Review of Systems - General: Reports doing well. - Cardiovascular: Denies chest pain. - Respiratory: Denies shortness of breath. - Neurological: Denies headache. - Ophthalmic: Denies diplopia. Physical Exam General: Cooperative, healthy appearing, comfortable, no acute distress and well developed, obese Orientation: Patient oriented x3 Limitations: No limitations Head: Normal to inspection Ears: Hearing grossly normal bilaterally Nose: Normal external nose present Face and sinus: Normal facial exam Eyes: Appearance normal, both eyes and all related structures Neck: Normal visual inspection and Yes full ROM Respiratory: Normal respiratory effort and able to speak in complete sentences. Clear to auscultation bilaterally Cardiovascular: Regular rate and rhythm. Normal S1 and S2 GI: Normal to inspection. Soft to palpation and nontender Skin: No rashes or lesions noted Neuro: Patient oriented x3 Results Plan 1. Dyslipidemia The patient is here for a follow-up visit for dyslipidemia. Fasting labs will be ordered in the near future to monitor her condition. 2. Obesity The patient was noted to be obese on physical exam. 3. Left Knee Arthritis The patient is currently seeing an orthopedics specialist for left knee arthritis and is doing well. She will continue to follow up with orthopedics for this condition. Discussion Notes I discussed with the patient that we would continue to monitor her dyslipidemia. I informed her that I will be ordering fasting labs for her to complete in the near future. We acknowledged that she is doing well with her orthopedic management for left knee arthritis. Patient Instructions - You will need to have blood tests done soon. - Please do not eat or drink anything (except water) for at least 8 hours before the blood draw. - Continue to follow up with your orthopedic doctor for your left knee arthritis. [facility] Medical History Osteoarthritis Hematuria, microscopic Insomnia H. pylori infection Schatzki's ring Osteopenia HTN (hypertension) Fibromyalgia Renal stones Asthma Surgical History History of partial hysterectomy Status post breast reduction History of laparoscopic cholecystectomy Family History Father CVD (cardiovascular disease) Myocardial infarction Mother Breast cancer Bladder cancer Son No problems noted. Social History Housing: House Alcohol intake: never Patient Tobacco Use Status: Never used Tobacco e-Cigarette/Vaping Use: Never Used Second Hand Smoke Exposure: No Current occupational status: retired Current occupational exposures/hazards: No Cognitive needs: No Hearing needs: No Vision needs: No Questionnaire PHQ-9 Over the last 2 weeks, how often have you been bothered by any of the following problems? 1. Little interest or pleasure in doing things: not at all 2. Feeling down, depressed, or hopeless: not at all 3. Trouble falling or staying asleep, or sleeping too much: not at all 4. Feeling tired or having little energy: not at all 5. Poor appetite or overeating: not at all 6. Feeling bad about yourself - or that you are a failure or have let yourself or your family down: not at all 7. Trouble concentrating on things, such as reading the newspaper or watching television: not at all 8. Moving or speaking so slowly that other people could have noticed. Or the opposite - being so fidgety or restless that you have been moving around a lot more than usual: not at all 9. Thoughts that you would be better off or of hurting yourself in some way: not at all Total score: 0 Depression Screening Interpretation: Negative Depression Screening Done: Yes 88107 - PHQ-9 Billing: Patient declined-do not bill Source: Developed by Drs. Angelito Katz, Cristine Coto, John Mora and colleagues, with an educational liss from [employer]. Thrive Questionnaire Date Thrive assessed: 01/27/25 I am a: Patient What is your living situation today?: I have a steady place to live Within the past 12 months, did the food you bought not last and you didn't have the money to get more?: Never true Within the past 12 months, did you worry whether your food would run out before you got money to buy more?: Never true Do you have trouble paying for medicines?: No Do you have trouble getting transportation to medical appointments?: No Do you have trouble paying your heating and electricity bill?: No Do you have trouble taking care of your child, family member or friend?: No Do you have trouble with day-to-day activities such as bathing, preparing meals, shopping, managing finances, etc.?: No Are you currently unemployed and looking for a job?: No Are you interested in more education?: No Please select the resources that you would like help with: None Currently or been in a relationship where the following occur: No concerns reported THRIVE Score: 0 KATE-7 AMB Questionnaire KATE-7 Date KATE - 7 assessed: 08/11/25 Feeling nervous, anxious, or on edge: 0 = Not at all Not being able to stop or control worryin = Not at all Worrying too much about different things: 0 = Not at all Trouble relaxin = Not at all Being so restless that it is hard to sit still: 0 = Not at all Becoming easily annoyed or irritable: 0 = Not at all Feeling afraid as if something awful might happen: 0 = Not at all Total KATE-7 score (0-4 normal; 5-9 mild; 10-14 moderate; 15-21 severe): 0 Source: Developed by Drs. Angelito Katz, Cristine Coto, John Mora and colleagues, with an educational liss from [employer]. KATE-7 Assessment Billing KATE-7 Assessment Tool: KATE-7 Assessment 84681 Physical exam (Primary Care) Vital Signs: Last Vital Signs Temp 97.8 F 08/11/25 14:12 Pulse 70 08/11/25 14:12 BP 120/64 08/11/25 14:12 Pulse Ox 97 08/11/25 14:12 Oxygen Delivery Method Room Air 08/11/25 14:12 Tobacco/Smoking Status: Tobacco use Status Tobacco use date assessed 08/11/25 08/11/25 14:19 Patient Tobacco Use Status Never used Tobacco 08/11/25 14:19 e-Cigarette/Vaping Use Never Used 08/11/25 14:19 PHQ-9: PHQ-9 Score PHQ-9: Total score 0 08/11/25 14:19 Depression Screening Interpretation: Negative Thrive Assessment: Date of Thrive Assessment Date Thrive assessed 01/27/25 08/11/25 14:19 Currently or been in a relationship where the following occur: No concerns reported Coding Level of Care Code Est Pt Level 3 (52073) Diagnoses Dyslipidemia E78.5 Vitamin D deficiency E55.9 Additional Codes KATE-7 Assessment Billing - KATE-7 Assessment Tool: KATE-7 Assessment 53667 ([id number]) Assessment & Plan Assessment & Plan (1) Dyslipidemia: Code(s): E78.5 - Hyperlipidemia, unspecified Category: Medical (2) Vitamin D deficiency: Code(s): E55.9 - Vitamin D deficiency, unspecified Category: Medical Plan . Orders: Orders TSH reflex Free T4 Today E78.5 - Hyperlipidemia, unspecified UA CC w/rflx Micro + Cult Today E78.5 - Hyperlipidemia, unspecified Complete Blood Count Auto Diff Today E78.5 - Hyperlipidemia, unspecified Comprehensive Hyrum. Panel Fast Today E78.5 - Hyperlipidemia, unspecified Lipid Panel Today E78.5 - Hyperlipidemia, unspecified Vitamin D 25-OH Total Today E55.9 - Vitamin D deficiency, unspecified
--- OUTSIDE RECORDS SUMMARY | 2025-08-11 17:06 | XMS_ITS | Patient Health Record ---
Author Organization [facility] [place] Address [address] [place] [address] Care Team Providers Care Cowlman Name Role Phone Maame Corley Primary Care Provide r Unavailable YudiFawad anna Unavailable [phone] Reason For Referral No Information Medications Medication SIG (Take, Route, Fr equency, Duration) Notes Start Date End Date Status Omeprazole 20mg Acti ve Urea 20 % 1 application to aff ected area Externally Twice a day; Duration: 30 days 01/11/2014 Active Lisinopril 10-12.5mg Active hydroCHLOROthiazide Active Problems Problem Type SNOMED Code ICD Code Onset Dates Problem Status W/U Status Risk Notes Problem Pain in limb (58323106) Pain in Limb (729.5) Active confirmed Problem Plantar fasciitis (007696450) Plantar Fasciitis (728.71) Active confirmed Problem Verruca plantaris (80581350) Verruca Plantaris (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.19) Active confirmed Problem Disorder of sebaceous gland (7986354) 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.8) Active confirmed Plan Of Treatment Pending Test Test Name Order Date [id number] Destruction, 1-14 11/23/2013 [id number] Destruction, -14 01/11/2014 [id number] TENDON SHEATH/LIGAMENT 0 03/18/2014 Insurance Providers Payer Name Payer Address Payer Phone Subscriber Number Group Number Insured Name Patient Relationship to Insured Coverage Start Date Coverage End Date [facility] [employer] [address] [place] [address] [id number] Mirtha Hinkle Self - patient is the insured Medical (General) History Medical History History ICD Code Fibromyalgia Hypertension Chicken pox Measles Mumps Surgical History Surgery Date(Month/Year) hysterectomy 1981
== END 2025-08-11 15:38 | disposition home or self-care (01) ==
LOC: HO.HMCC 13:59
PROVIDERS: PCP Nurse Practitioner Family; Visit Provider Nurse Practitioner Family
DX: E78.5 Hyperlipidemia, unspecified (principal); E55.9 Vitamin D deficiency, unspecified

== ENCOUNTER → 2025-08-11 13:58 | Outpatient (BNVA) | payer BC, SELFPAY | PROVIDERS: PCP Nurse Practitioner Family; Visit Provider Nurse Practitioner Family | DX: E78.5 Hyperlipidemia, unspecified (principal); E55.9 Vitamin D deficiency, unspecified; E66.9 Obesity, unspecified | CPT/HCPCS: 96127 ==